=== PATIENT | male | born 1990 | race Two or more races ===

== ENCOUNTER 2019-05-15 13:59 | Emergency (ER) | payer SELFPAY ==
[~2019-05-15] VITALS: Ht 165.1 cm; Wt 65.8 kg
--- NOTE | 2019-05-15 14:05 | NUR ---
ED Nurse Note: Pt arrived to ER escorted by 2 levy shukla d/t blisters on bilateral feet noted with itchiness as stated by pt.
[2019-05-15 14:17] VITALS: BP 121/86
[2019-05-15] MEDS ORDERED: Cephalexin 500mg cap ONE (14:43)
[2019-05-15] MEDS ORDERED: Cephalexin 500mg cap ORAL ONE (14:45)
[2019-05-15] MEDS ORDERED: Bactrim-DS 1 tab ORAL ONE (14:45)
[2019-05-15] MEDS ORDERED: Tetanus/Diptheria/Pertussis IM ONE (14:45)
[2019-05-15] MEDS ORDERED: Bacitracin Oint UD TOPIC ONE (14:45)
--- NOTE | 2019-05-15 14:50 | Emergency Room Report ---
History of Present Illness General Chief Complaint: Medical Clearance Source: Patient Present Illness HPI 28-year-old male presents to the emergency department complaining of open blisters on the feet bilaterally x1 week. Patient denies pain at this time. He states he is not up-to-date with his tetanus vaccine. He is not experiencing any bleeding at the moment. Patient denies fevers or chills. He denies cough, chest pain, palpitations, shortness of breath, dizziness, headache , rashes or skin infections. Patient denies any significant past medical history. No other aggravating or relieving factors at this time. Patient is presenting for medical clearance for incarceration as well. COVID-19 risk:Travel to affect: No Has patient experienced enriquez: No Allergies: Coded Allergies: No Known Allergies (Unverified , 05/15/19) Patient History Past Medical History: see triage record Past Surgical History: none Pertinent Family History: none Reviewed Nursing Documentation: PMH: Agreed; PSxH: Agreed Nursing Documentation-PMH Past Medical History: No Stated History Review of Systems All Other Systems: negative except mentioned in HPI Physical Exam Vital Signs Date Time Temp Pulse Resp B/P (MAP) Pulse Ox O2 Delivery O2 Flow Rate FiO2 05/15/19 14:02 98.2 76 18 121/86 (98) 99 Room Air Sp02 EP Interpretation: reviewed, normal General Appearance: no apparent distress, alert, GCS 15, non-toxic Head: normocephalic, atraumatic Eyes: bilateral eye normal inspection, bilateral eye PERRL ENT: hearing grossly normal, normal voice Neck: full range of motion Respiratory: chest non-tender, lungs clear, normal breath sounds, no wheezing, speaking full sentences Cardiovascular #1: regular rate, rhythm, no edema Cardiovascular #2: 2+ dorsalis pedis (R), 2+ dorsalis pedis (L) Gastrointestinal: normal bowel sounds, non tender, soft Musculoskeletal: normal range of motion, gait/station normal, non-tender Neurologic: alert, motor strength/tone normal, oriented x3, sensory intact, responsive, speech normal Psychiatric: judgement/insight normal Skin: other - two open ulcerated blisters on the heel of the right foot. There are 4 discrete ulcerated blisters on the dorsum of the left foot with some warmth and swelling. mild erythema is noted as well. both feet are grossly contaminated. no sloughing of the skin. negative niklosky sign. Lymphatic: no adenopathy Medical Decision Making PA Attestation Dr. Perez is my supervising Physician whom patient management has been discussed with. Diagnostic Impression: Primary Impression: Cellulitis Qualified Codes: L03.116 - Cellulitis of left lower limb Additional Impression: Medical clearance for incarceration ER Course 28-year-old male presents to the emergency department complaining of open blisters on the feet bilaterally x1 week. Patient denies pain at this time. He states he is not up-to-date with his tetanus vaccine. He is not experiencing any bleeding at the moment. Patient denies fevers or chills. He denies cough, chest pain, palpitations, shortness of breath, dizziness, headache , rashes or skin infections. Patient denies any significant past medical history. No other aggravating or relieving factors at this time. Patient is presenting for medical clearance for incarceration as well.Pt. presents to the ED for medical clearance for incarceration. Ddx considered but are not limited to Head Trauma, IN, ACS, SI/HI, URI, SAH, Fractures, Dislocations, Cellulitis, Abscess,Tazer barbs, Abrasions. Vital signs: are WNL, pt. is afebrile H&PE are most consistent with: normal limited physical examination. ORDERS: none required at this time, the diagnosis is clinical ED INTERVENTIONS: -Tdap IM -WOund Care + Bacitracin - Pt. is given a new pair of socks DISCHARGE: At this time pt. is stable for d/c to law enforcement. Will provide printed patient care instructions, and any necessary prescriptions. Care plan and follow up instructions have been discussed with the patient prior to discharge. Last Vital Signs Date Time Temp Pulse Resp B/P (MAP) Pulse Ox O2 Delivery O2 Flow Rate FiO2 05/15/19 14:17 98.2 18 121/86 99 Room Air 05/15/19 14:17 76 Disposition: HOME, SELF-CARE Condition: Stable Scripts Trimethoprim/Sulfamethoxazole 160/800* (BACTRIM DS TABLET*) 1 Each Tablet 1 TAB ORAL TWICE A DAY for 7 Days, #14 TAB Prov: Harriet Baer 05/15/19 Cephalexin* (KEFLEX*) 500 Mg Capsule 500 MG ORAL EVERY 12 HOURS, #14 CAP 0 Refills Prov: Harriet Baer 05/15/19 Referrals: [facility] Departure Forms: Fdc Clearance Patient Instructions: Cellulitis, [id number], Medical Screening Exam Additional Instructions: Take medications as directed. Follow up with a Primary Care Provider in 3-5 days, even if your symptoms have resolved. --Please review list of primary care clinics, if you do not already have a primary care provider Return sooner to ED if new symptoms occur, or current symptoms become worse. - Please note that this Emergency Department Report was dictated using [employer] market research technology software, occasionally this can lead to erroneous entry secondary to interpretation by the dictation equipment. Harriet Baer May 15, 2019 14:50
[2019-05-15] MEDS ORDERED: BACTRIM DS TAB1 EAC1 ORAL (14:52)
[2019-05-15] MEDS ORDERED: CEPHALEXIN500 MG ORAL (14:52)
[2019-05-15 15:04] VITALS: BP 126/88
--- NOTE | 2019-05-15 15:04 | NUR ---
ED Nurse Note: Pt was medically ready for d/c per ERPA. VSS, on RA, wound care was provided by EMT and RN, with antibiotic ointment. Pt's dc papers, instructions and prescriptions was given. Pt ID band was removed. Pt left ED escorted by two chronic specialist.
== END 2019-05-15 15:04 | disposition home or self-care (01) ==
LOC: EMR 14:15
DX: L03.116 Cellulitis of left lower limb (principal); Z23 Encounter for immunization
CPT/HCPCS: 90471; 90715; 99282